=== PATIENT | female | born 1995 | race African-American/Black ===

== ENCOUNTER 2019-03-07 19:30 | Inpatient (IN) | payer MEDICAID ==
[2019-03-07 20:17] LABS: APPEARANCE,URINE CLEAR; BILIRUBIN,URINE NEGATIVE (NEGATIVE); COLOR,URINE YELLOW; GLUCOSE, URINE NEGATIVE (NEGATIVE); KETONES,URINE NEGATIVE (NEGATIVE); LEUKOCYTE ESTERASE,URINE NEGATIVE (NEGATIVE); NITRITE,URINE NEGATIVE (NEGATIVE); PROTEIN,URINE NEGATIVE (NEGATIVE); URINE SPECIFIC GRAVITY 1.014; UROBILINOGEN,URINE NEGATIVE mg/dL (<2.0)
[2019-03-07] MEDS ORDERED: RINGERS SOLUTION,LACTATED 1,000 ML IV PRN (20:21)
[2019-03-07 20:32] LABS: URINE AMPHETAMINES SCREEN NEGATIVE; URINE BARBITURATES SCREEN NEGATIVE; URINE BENZODIAZEPINES SCREEN NEGATIVE; URINE COCAINE SCREEN NEGATIVE; URINE MARIJUANA (THC) SCREEN NEGATIVE; URINE METHADONE SCREEN NEGATIVE; URINE PHENCYCLIDINE SCREEN NEGATIVE
[2019-03-07 20:49] LABS: ABSOLUTE EOSINOPHILS # (AUTO) 0.4 10^3/uL (0.0-0.6); ABSOLUTE LYMPHOCYTES (AUTO) 1.8 10^3/uL (0.5-4.7); ABSOLUTE MONOCYTES (AUTO) 0.9 10^3/uL (0.1-1.4); ABSOLUTE NEUT (AUTO) 6.6 10^3/uL (1.7-8.2); BASOPHILS % (AUTO) 0.3 % (0-2); EOSINOPHILS % (AUTO) 3.9 % (0-6); HEMATOCRIT 32.4 % (36.0-47.0); HEMOGLOBIN 10.7 g/dL (12.0-15.5); MEAN CORPUSCULAR HEMOGLOBIN 26.4 pg (27.0-33.4); MEAN CORPUSCULAR VOLUME 80 fl (80-97); MONOCYTES % (AUTO) 9.2 % (3-13); PLATELET COUNT 170 10^3/uL (150-450); RED BLOOD COUNT 4.04 10^6/uL (3.72-5.28); RED CELL DISTRIBUTION WIDTH 14.9 % (11.5-14.0); SEGMENTED NEUTROPHILS % (AUTO) 67.6 % (42-78); TOTAL CELLS COUNTED % (AUTO) 100 %; WHITE BLOOD COUNT 9.7 10^3/uL (4.0-10.5)
[2019-03-07] MEDS ORDERED: PHENYLEPHRINE HCL INJ/PF 10 MG/1 ML SDV ONE (20:54)
[2019-03-07] MEDS ORDERED: FENTANYL CITRATE INJ/PF 100 MCG/2 ML AMPUL ONE (20:54)
[2019-03-07] MEDS ORDERED: FENTANYL/BUPIVACAINE/NS/PF 300 MCG/150 ML RTUINJ EPI ONE (20:55)
[2019-03-07] MEDS ORDERED: BUPIVACAINE HCL 0.25 % INJ/PF (2.5 MG/1 ML) 30 ML VIAL ONE (20:55)
[2019-03-07] MEDS ORDERED: EPHEDRINE SULFATE INJ 50 MG/1 ML AMPULE ONE (20:55)
--- NOTE | 2019-03-07 22:28 | Admission Physical ---
Datetime Report Generated by CPN: 03/07/2019 22:28 CURRENT ADMISSION Chief Complaint: Uterine Contractions; Suspected Ruptured Membranes Indication for Induction: Not Applicable Admit Impression : Term, Intrauterine ; Active Labor; Ruptured Membranes Admit Plan: Admit to Unit; Initiate Labor Protocol ALLERGIES Medication Allergies: No Medication Allergies: No Known Allergies (03/07/2019) Latex: No Latex Allergies Food Allergies: no Environmental Allergies: no OBSTETRICAL HISTORY EDC: 03/09/2019 00:00 : 2 Para: 1 Term: 1 : 0 SAB: 0 IAB: 0 Ectopic: 0 Livin Cesareans: 0 VBACs: 0 Multiple Births: 0 Gestational Diabetes: No Rh Sensitization: No Incompetent Cervix: No AUGUST: No Infertility: No ART Treatment: No Uterine Anomaly: No IUGR: No Hx Previous C/S: No Macrosomia: No Hx Loss/Stillborn: No PIH: No Hx : No Placenta Previa/Abruption: No Depression/PP Depression: No PTL/PROM: No Post Hemorrhage: Yes Current Procedures: Ultrasound SEE RECORDS Alcohol: No Marijuana : No Cocaine: No Other Illicit Drugs: No Cigarettes: Never Smoker. 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 Surgery: No Heart Disease: No Hosp/Surgery: No Autoimmune Disorder: No Anesthetic Complications: No Kidney Disease: No Abnormal Pap Smear: No Neuro/Epilepsy: No Psychiatric Disorders: No Other Medical Diseases: No Hepatitis/Liver Disease: No Significant Family History: No Varicosities/Phlebitis: No Trauma/Violence : No Thyroid Dysfunction: No INFECTIOUS HISTORY Gonorrhea: No Genital Herpes: No Chlamydia: No Tuberculosis: No Syphilis: No Hepatitis: No HIV/AIDS Exposure: No Rash or Viral Illness: No HPV: No Infectious History Comments: trich PHYSICAL EXAM General: Normal HEENT: Normal Neurologic: Normal Thyroid: Normal Heart: Normal Lungs: Normal Breast: Normal Back: Normal Abdomen: Normal Genitourinary Exam: Normal Extremities: Normal DTRs: Normal Pelvic Type: Adequate Vital Signs: Reviewed; Within Normal Limits VAGINAL EXAM Dilatation: 4 Effacement: 90 Station: -2 MEMBRANES Pooling: Positive Membranes: Ruptured Amniotic Fluid Color: Clear FETUS A EGA: 39.5 Monitoring: External US FHR- Baseline: 130 Variability: Moderate 6-25bpm Accelerations: 15X15 Decelerations: None FHR Category: Category I Estimated Weight (gm): 3500 Presentation: Vertex PLANS FOR LABOR AND DELIVERY Labor and Delivery: None Pain Management: Epidural Feeding Preference: Breast Benefit of Breast Feed Discussed: Yes Circumcision: N/A INFORMED CONSENT Signature: with User ID: Anderson
[2019-03-07] MEDS ORDERED: OXYTOCIN 10 UNIT/ML VIAL ONE (22:49)
[2019-03-07] MEDS ORDERED: OXYTOCIN/NORMAL SALINE 20 UNIT/1,000 ML RTUINJ ONE (22:49)
[2019-03-07] MEDS ORDERED: MISOPROSTOL 0.2 MG TABLET ONE (22:49)
[2019-03-07] MEDS ORDERED: LIDOCAINE 1% INJ-PF (10 MG/ML) 30 ML SDV ONE (22:49)
[2019-03-08] MEDS ORDERED: GLYCERIN/WITCH HAZEL LEAF 1 EACH MED..WIPE TP PRN (00:12)
[2019-03-08] MEDS ORDERED: PROMETHAZINE HCL 25 MG SUPP.RECT PR PRN (00:12)
[2019-03-08] MEDS ORDERED: DIPHENHYDRAMINE HCL 25 MG CAPSULE PO PRN (00:12)
[2019-03-08] MEDS ORDERED: ACETAMINOPHEN WITH CODEINE #3 TABLET PO PRN ×2 (00:12)
[2019-03-08] MEDS ORDERED: PSEUDOEPHEDRINE HCL 30 MG TABLET PO PRN (00:12)
[2019-03-08] MEDS ORDERED: DIBUCAINE 1% OINTMENT 56 GM TP PRN (00:12)
[2019-03-08] MEDS ORDERED: OXYTOCIN/NORMAL SALINE 20 UNIT/1,000 ML RTUINJ IV PRN (00:12)
[2019-03-08] MEDS ORDERED: DIPH/PERTUSS(ACELL)/TETANUS VAC/PF 0.5 ML SYR (>=10YO) IM PRN (00:12)
[2019-03-08] MEDS ORDERED: MAGNESIUM HYDROXIDE SUSP 30 ML UDCUP PO PRN (00:12)
[2019-03-08] MEDS ORDERED: PROMETHAZINE HCL 25 MG TABLET PO PRN (00:12)
[2019-03-08] MEDS ORDERED: ACETAMINOPHEN 650 MG SUPP.RECT PR PRN (00:12)
[2019-03-08] MEDS ORDERED: MEASLES,MUMPS&RUBELLA VACC/PF 0.5 ML VIAL SUBCUT PRN (00:12)
[2019-03-08] MEDS ORDERED: BENZOCAINE/MENTHOL AEROSOL SPRAY 56 ML TOP PRN (00:12)
[2019-03-08] MEDS ORDERED: NA PHOS,M-B/NA PHOS,DI-BA (ADULT) 133 ML ENEMA PR PRN (00:12)
[2019-03-08] MEDS ORDERED: ZOLPIDEM TARTRATE 5 MG TABLET PO PRN (00:12)
[2019-03-08] MEDS ORDERED: PROMETHAZINE HCL INJ 25 MG/1 ML VIAL IV PRN (00:12)
--- NOTE | 2019-03-08 01:43 | Delivery Summary ---
Del Sum A-C Datetime Report Generated by CPN: 03/08/2019 01:43 DELIVERY PERSONNEL DELIVERY PERSONNEL: [id number] Delivery Doctor:: Tiara Sultana MD Labor and Delivery Nurse:: Nani Saleh, RNC Rod Piler/CREDIT NEGOTIATOR: Gayla Hackett, ST Additional Personnel: : J Field RN MATERNAL INFORMATION Delivery Anesthesia: Epidural Medications After Delivery: Pitocin Bolus-Please Comment Estimated Blood Loss (ml): 100 Delivery QBL: 110 Maternal Complications: None LABOR SUMMARY EDC: 03/09/2019 00:00 No. Babies in Womb: 1 Attempted: No Labor Anesthesia: Epidural LABOR INFORMATION Reason for Induction: Not Applicable Onset of Labor: 02/28/2019 19:00 Complete Dilatation: 03/07/2019 23:31 Oxytocin: N/A Group B Beta Strep: neg Antibiotics # of Doses: 0 Antibiotics Time of Last Dose: 0 Name of Antibiotic Given: 0 Steroids Given: None Reason Steroids Not Administered: Not Applicable MEMBRANES Membranes Rupture Method: Spontaneous Rupture of Membranes: 03/07/2019 19:02 Length of Rupture (hr): 28.87 Amniotic Fluid Color: Clear Amniotic Fluid Amount: Small Amniotic Fluid Odor: None STAGES OF LABOR Stage 1 hr: 172 Stage 1 min: 31 Stage 2 hr: 24 Stage 2 min: 23 Stage 3 hr: 0 Stage 3 min: 2 Total Time in Labor hr: 196 Total Time in Labor min: 56 VAGINAL DELIVERY Episiotomy: None Laceration #1: Perineal Laceration Extension #1: Second Degree Laceration Repair: Yes Laceration Repair Note: 2-0 chromic Sponge Count Correct: Yes Sharps Count Correct: Yes BABY A INFORMATION Delivery Date/Time: 03/08/2019 23:54 Method of Delivery: Vaginal Born in Route : No : N/A Forceps: N/A Vacuum Extraction: N/A Shoulder Dystocia : No PRESENTATION/POSITION BABY A Presentation: Cephalic Cephalic Presentation: Vertex Vertex Position: Left Occipital Posterior Breech Presentation: N/A PLACENTA INFORMATION BABY A Placenta Delivery Time : 03/08/2019 23:56 Placenta Method of Delivery: Spontaneous Placenta Status: Delivered SCORES BABY A Heart Rate 1 min: >100 bpm Resp Effort 1 min: Good Cry Reflex Irritability 1 min: Cough or Sneeze or Pulls Away Muscle Tone 1 min: Active Motion Color 1 min: Body [place], Extremities Blue Resuscitation Effort 1 min: Tactile Stimulation SCORE 1 MIN: 9 Heart Rate 5 min: >100 bpm Resp Effort 5 min: Good Cry Reflex Irritability 5 min: Cough or Sneeze or Pulls Away Muscle Tone 5 min: Active Motion Color 5 min: Body [place], Extremities Blue SCORE 5 MIN: 9 INFORMATION BABY A Gestational Age at Delivery: 39.5 Gestational Status: Full Term- 39- 40.6 Weeks Infant Outcome : Liveborn Infant Condition : Stable Infant Sex: Female IDENTIFICATION BABY A Verification Date/Time: 03/08/2019 00:02 ID Band Number: [id number] Mother's Name Verified: Yes RN Verifying : DORCAS Conteh and DORCAS Euceda WEIGHT/LENGTH BABY A Infant Birthweight (gm): 3680 Weight (lb): 8 Weight (oz): 2 Length (in): 19.75 Infant Length (cm): 50.17 CORD INFORMATION BABY A No. Cord Vessels: 3 Nuchal Cord : N/A Cord Blood Taken: Yes-For Storage (Mom's Blood type +) Infant Suction: None ASSESSMENT BABY A Infant Complications: None Physical Findings at Delivery: Molding of the Head Infant Respirations: Appears Normal Skin to Skin: Yes Skin to Skin Time (min): 10 Pool Cleaner/ALS Called : No Care By: Jorge Gonzalez RN Transferred To: Remains with Mother BABY B INFORMATION : N/A SIGNATURES Signature: with User ID: [email or web address]
[2019-03-08] MEDS ORDERED: IBUPROFEN 800 MG TABLET ONE (05:52)
[2019-03-08] MEDS ORDERED: BENZOCAINE/MENTHOL AEROSOL SPRAY 56 ML ONE (05:52)
[2019-03-08] MEDS: IBUPROFEN 800 MG TABLET PO SCH ×3 (05:55→21:48)
[2019-03-08] MEDS: SENNOSIDES/DOCUSATE 8.6-50 MG 1 EACH TABLET PO SCH (09:46)
[2019-03-08] MEDS: FERROUS SULFATE 325 MG TABLET PO SCH ×2 (09:46→17:28)
[2019-03-08] MEDS: FAMOTIDINE 20 MG TABLET PO SCH ×2 (09:47→21:48)
[2019-03-08] MEDS: DOCUSATE SODIUM 100 MG CAPSULE PO SCH ×2 (09:47→17:28)
[2019-03-08] MEDS: PRENATAL VITAMIN W DHA CAPSULE PO SCH (09:47)
--- NOTE | 2019-03-08 09:56 | PDOC PROGRESS REPORT ---
Subjective-OB Progress Note for:: 03/08/19 - PP Day #1, doing well, no complaints, , A+ Physical Exam (OB) Vital Signs: Temp Pulse Resp BP Pulse Ox 97.5 F 66 16 138/80 H 03/08/19 09:09 03/08/19 09:09 03/08/19 09:09 03/08/19 09:09 Intake & Output 03/07/19 03/08/19 03/09/19 06:59 06:59 06:59 Weight 73.3 kg - General General Appearance: Appears well, Alert In distress: None - Lochia Lochia Amount: Scant < 10 ml Lochia Color: Rubra/Red - Abdomen Description: Soft Fundal Description: Firm, Midline Fundal Height: u/u - u/2 - Respiratory Respiratory Status: No respiratory distress - Abdominal Inspection: Normal Distension: No distension Tenderness: Nontender - Genitourinary Genitourinary Note: voiding - Extremities Upper extremity: Normal inspection Lower extremities: Normal inspection - Neurological Cognition: Normal Orientation: AAOx4 - Psychological Associated symptoms: Normal affect, Normal mood - Skin Skin Temperature: Warm Skin Moisture: Dry Objective-Diagnostic Laboratory: 03/07/19 20:27 03/07/19 03/07/19 03/07/19 19:48 20:27 20:27 WBC 9.7 RBC 4.04 Hgb 10.7 L Hct 32.4 L MCV 80 MCH 26.4 L MCHC 33.0 RDW 14.9 H Plt Count 170 Seg Neutrophils % 67.6 Urine Color YELLOW Urine Appearance CLEAR Urine pH 6.0 Ur Specific [place] 1.014 Urine Protein NEGATIVE Urine Glucose (UA) NEGATIVE Urine Ketones NEGATIVE Urine Blood NEGATIVE Urine Nitrite NEGATIVE Ur Leukocyte Esterase NEGATIVE Blood Type A POSITIVE Antibody Screen NEGATIVE Assessment and Plan(PN) - Assessment and Plan (1) (normal spontaneous vaginal delivery) Is this a current diagnosis for this admission?: Yes (2) Normal course Is this a current diagnosis for this admission?: Yes - Time Spent with Patient Time with patient: Less than 15 minutes Medications reviewed and adjusted accordingly: Yes - Disposition Anticipated Discharge: Home Within: within 24 hours
[2019-03-09] MEDS ORDERED: IBUPROFEN 800 MG TABLET PO ONE (07:00)
[2019-03-09] MEDS: IBUPROFEN 800 MG TABLET PO SCH ×2 (07:01→14:10)
[2019-03-09 07:32] LABS: HEMATOCRIT 29.1 % (36.0-47.0); HEMOGLOBIN 9.8 g/dL (12.0-15.5); MEAN CORPUSCULAR HGB CONC 33.8 g/dL (32.0-36.0); MEAN CORPUSCULAR VOLUME 77 fl (80-97); PLATELET COUNT 142 10^3/uL (150-450); RED BLOOD COUNT 3.78 10^6/uL (3.72-5.28); RED CELL DISTRIBUTION WIDTH 14.7 % (11.5-14.0)
[2019-03-09 09:18] VITALS: BP 127/80
[2019-03-09] MEDS: FAMOTIDINE 20 MG TABLET PO SCH (09:43)
[2019-03-09] MEDS: SENNOSIDES/DOCUSATE 8.6-50 MG 1 EACH TABLET PO SCH (09:43)
[2019-03-09] MEDS: DOCUSATE SODIUM 100 MG CAPSULE PO SCH (09:43)
[2019-03-09] MEDS: FERROUS SULFATE 325 MG TABLET PO SCH (09:43)
[2019-03-09] MEDS: PRENATAL VITAMIN W DHA CAPSULE PO SCH (09:43)
--- NOTE | 2019-03-09 12:22 | PDOC PROGRESS REPORT ---
Subjective-OB Progress Note for:: 03/09/19 Subjective: Ready for discharge. Physical Exam (OB) Vital Signs: Temp Pulse Resp BP Pulse Ox 97.9 F 76 14 127/80 H 99 03/09/19 07:00 03/09/19 07:00 03/09/19 07:00 03/09/19 07:00 03/09/19 07:00 Intake & Output 03/08/19 03/09/19 03/10/19 06:59 06:59 06:59 Weight 73.3 kg - PIH/Pre-Eclampsia Clonus: Negative Headache: Absent Epigastric Pain: No Visual Changes: No - Lochia Lochia Amount: Scant < 10 ml Lochia Color: Rubra/Red - Abdomen Description: Soft Hernia Present: No Bowel Sounds: Normoactive Flatus Presence: Present Stool: No Fundal Description: Firm, Midline Fundal Height: u/u - u/2 Objective-Diagnostic Laboratory: 03/09/19 06:35 03/09/19 06:35 WBC 12.0 H RBC 3.78 Hgb 9.8 L Hct 29.1 L MCV 77 L MCH 26.0 L MCHC 33.8 RDW 14.7 H Plt Count 142 L Assessment and Plan(PN) - Time Spent with Patient Medications reviewed and adjusted accordingly: Yes - Disposition Anticipated Discharge: Home
--- NOTE | 2019-03-09 12:30 | PDOC DISCHARGE SUMMARY ---
Impression - Admit/DC Date/PCP Admission Date/Primary Care Provider: 03/07/19 19:55 CHEY MARROQUIN MD Discharge Date: 03/09/19 - Discharge Diagnosis (1) History of hemorrhage Is this a current diagnosis for this admission?: Yes (2) (normal spontaneous vaginal delivery) Is this a current diagnosis for this admission?: Yes (3) Normal course Is this a current diagnosis for this admission?: Yes - Additional Information Resuscitation Status: Full Code Discharge Diet: Regular Discharge Activity: Activity As Tolerated, Balance Activity w/Rest, No Lifting Over 10 Pounds, Pelvic Rest, Slowly Increase Activity, No tub bath Referrals: CHEY MARROQUIN MD [Primary Care Provider] - Prescriptions: Docusate Sodium [Colace 100 mg Capsule] 100 mg PO BID #30 capsule Ferrous Sulfate [Feosol 325 mg Tablet] 325 mg PO BID #60 tablet Home Medications: Pnt525/Iron Fum/Folic/Docusate [ 19 Tablet] 1 each PO DAILY 03/07/19 Docusate Sodium [Colace 100 mg Capsule] 100 mg PO BID #30 capsule 03/09/19 Ferrous Sulfate [Feosol 325 mg Tablet] 325 mg PO BID #60 tablet 03/09/19 HPI Gestational Age: 39.5 wks Procedures: Ultrasound Intrapartum Procedure(s): Spontaneous Vaginal Delivery Complication(s): Laceration-Periurethral Laceration-Degree: 2nd Results Laboratory Results: WBC 12.0 10^3/uL (4.0-10.5) H 03/09/19 06:35 RBC 3.78 10^6/uL (3.72-5.28) 03/09/19 06:35 Hgb 9.8 g/dL (12.0-15.5) L 03/09/19 06:35 Hct 29.1 % (36.0-47.0) L 03/09/19 06:35 MCV 77 fl (80-97) L 03/09/19 06:35 MCH 26.0 pg (27.0-33.4) L 03/09/19 06:35 MCHC 33.8 g/dL (32.0-36.0) 03/09/19 06:35 RDW 14.7 % (11.5-14.0) H 03/09/19 06:35 Plt Count 142 10^3/uL (150-450) L 03/09/19 06:35 Lymph % (Auto) 19.0 % (13-45) 03/07/19 20:27 [place] % (Auto) 9.2 % (3-13) 03/07/19 20:27 Eos % (Auto) 3.9 % (0-6) 03/07/19 20:27 Baso % (Auto) 0.3 % (0-2) 03/07/19 20:27 Absolute Neuts (auto) 6.6 10^3/uL (1.7-8.2) 03/07/19 20: Absolute Lymphs (auto) 1.8 10^3/uL (0.5-4.7) 03/07/19 20:27 Absolute Monos (auto) 0.9 10^3/uL (0.1-1.4) 03/07/19 20:27 Absolute Eos (auto) 0.4 10^3/uL (0.0-0.6) 03/07/19 20:27 Absolute Basos (auto) 0.0 10^3/uL (0.0-0.2) 03/07/19 20:27 Seg Neutrophils % 67.6 % (42-78) 03/07/19 20:27 Urine Color YELLOW 03/07/19 19:48 Urine Appearance CLEAR 03/07/19 19:48 Urine pH 6.0 (5.0-9.0) 03/07/19 19:48 Ur Specific [place] 1.014 03/07/19 19:48 Urine Protein NEGATIVE mg/dL (NEGATIVE) 03/07/19 19:48 Urine Glucose (UA) NEGATIVE mg/dL (NEGATIVE) 03/07/19 19:48 Urine Ketones NEGATIVE mg/dL (NEGATIVE) 03/07/19 19:48 Urine Blood NEGATIVE (NEGATIVE) 03/07/19 19:48 Urine Nitrite NEGATIVE (NEGATIVE) 03/07/19 19:48 Urine Bilirubin NEGATIVE (NEGATIVE) 03/07/19 19:48 Urine Urobilinogen NEGATIVE mg/dL (<2.0) 03/07/19 19:48 Ur Leukocyte Esterase NEGATIVE (NEGATIVE) 03/07/19 19:48 Urine Ascorbic Acid NEGATIVE (NEGATIVE) 03/07/19 19:48 Urine Opiates Screen NEGATIVE 03/07/19 19:48 Urine Methadone Screen NEGATIVE 03/07/19 19:48 Ur Barbiturates Screen NEGATIVE 03/07/19 19:48 Ur Phencyclidine Scrn NEGATIVE 03/07/19 19:48 Ur Amphetamines Screen NEGATIVE 03/07/19 19:48 U Benzodiazepines Scrn NEGATIVE 03/07/19 19:48 Urine Cocaine Screen NEGATIVE 03/07/19 19:48 U Marijuana (THC) Screen NEGATIVE 03/07/19 19:48 RPR NONREACTIVE (NONREACTIVE) 03/07/19 20:27 Blood Type A POSITIVE 03/07/19 20:27 Antibody Screen NEGATIVE 03/07/19 20:27 Impressions: Normal pp course Plan Plan of Treatment: Follow up at [facility] in 4 wks or prn. Pelvic rest x 4-6 wks. Time Spent: Less than 30 Minutes
== END 2019-03-09 14:20 | disposition home or self-care (01) | DRG 807 ==
LOC: LC 19:30 → LR 19:55 → 2S 03-08 09:05
PROVIDERS: ADMIT Obstetrics & Gynecology; ATTEND Obstetrics & Gynecology
PROC: 10E0XZZ Delivery of Products of Conception, External Approach (ICD-10-PCS; principal; 2019-03-08)
DX: O70.1 Second degree perineal laceration during delivery (principal); Z37.0 Single live birth; Z3A.39 39 weeks gestation of pregnancy; Z86.19 Personal history of other infectious and parasitic diseases
CPT/HCPCS: 36415; 80307; 81005; 85025; 85027; 86592; 86850; 86900; 86901; 94760; J2370; J2590; J3010; J3490